=== PATIENT | female | born 1970 | race Caucasian/White ===

== ENCOUNTER 2020-03-28 02:40 | Emergency (ER) | payer OTHER ==
[~2020-03-28] VITALS: Ht 165.1 cm; Wt 67.3 kg
[2020-03-28 02:40] VITALS: BP 131/73
--- NOTE | 2020-03-28 03:05 | PHYS DOC ---
General Adult EDM: Chief Complaint: PAIN ON URINATION HPI: HPI: History obtained from patient. Patient is a 49-year-old female with history of UTI who presents with chief complaint of dysuria. She states 1 week ago her urine began smelling foul. States she has been trying [id number] Azo medication with minimal relief. She also has been drinking extra fluids and cranberry juice with minimal relief. She states that she thought her symptoms had improved however she woke up 30 minutes prior to arrival with significant dysuria. She also noted some blood on the tissue paper after wiping. Denies vaginal bleeding or discharge. Denies back pain. Denies history of kidney ston e. Notes this feels similar to previous urinary tract infections. States she has not had antibiotics in the past 6 months. Denies fevers or vomiting. States she has had some blood in her urine in the past with infection. Denies syncope. No other complaints. Review of Systems: Review of Systems: Constitutional: Denies fever or chills Eyes: Denies change in visual acuity HENT: Denies nasal congestion or sore throat Respiratory: Denies cough or shortness of breath Cardiovascular: Denies chest pain or edema GI: Denies abdominal pain, nausea, vomiting, bloody stools or diarrhea : Positive for dysuria Musculoskeletal: Denies back pain or joint pain Integument: Denies rash Neurologic: Denies headache, focal weakness or sensory changes Endocrine: Denies polyuria or polydipsia Lymphatic: Denies swollen glands Psychiatric: Denies depression or anxiety Physical Exam: PE: Constitutional: Well developed, well nourished, no acute distress, non-toxic appearance. [] HENT: Normocephalic, atraumatic, bilateral external ears normal, oropharynx moist, no oral exudates, nose normal. [] Eyes: PERRLA, EOMI, conjunctiva normal, no discharge. [] Neck: Normal range of motion, no tenderness, supple, no stridor. [] Cardiovascular:Heart rate regular rhythm, no murmur [] Lungs & Thorax: Bilateral breath sounds clear to auscultation [] Abdomen: Soft, nontender, nonacute abdomen. No involuntary guarding or rigidity noted. No acute peritonitis. Skin: Warm, dry, no erythema, no rash. [] Back: No tenderness, no CVA tenderness. [] Extremities: No tenderness, no cyanosis, no clubbing, ROM intact, no edema. [] Neurologic: Alert and oriented X 3, normal motor function, normal sensory func tion, no focal deficits noted. [] Psychologic: Affect normal, judgement normal, mood normal. [] Current Patient Data: Labs: Laboratory Tests Test 03/28/20 02:50 Urine Collection Type Unknown Urine Color Yellow Urine Clarity Hazy Urine pH 6.0 Urine Specific [place] 1.010 Urine Protein Neg Urine Glucose (UA) Neg mg/dL Urine Ketones (Stick) Neg mg/dL Urine Blood Large Urine Nitrite Neg Urine Bilirubin Neg Urine Urobilinogen Dipstick 0.2 mg/dL Urine Leukocyte Esterase Large Urine RBC 1-2 /HPF Urine WBC >40 /HPF Urine Squamous Epithelial Cells Few /LPF Urine Bacteria Few /HPF Vital Signs: Vital Signs Date Time Temp Pulse Resp B/P (MAP) Pulse Ox O2 Delivery O2 Flow Rate FiO2 03/28/20 02:40 98.6 76 16 131/73 (92) 100 Room Air EKG: EKG: [] Radiology/Procedures: Radiology/Procedures: [] Heart Score: Risk Factors: Risk Factors: DM, Current or recent (<one month) smoker, HTN, HLP, family history of CAD, obesity. Risk Scores: Score 0 - 3: 2.5% MACE over next 6 weeks - Discharge Home Score 4 - 6: 20.3% MACE over next 6 weeks - Admit for Clinical Observation Score 7 - 10: 72.7% MACE over next 6 weeks - Early Invasive Strategies Course & Med Decision Making: Course & Med Decision Making Pertinent Labs and Imaging studies reviewed. (See chart for details) [] Patient is a very pleasant 49-year-old female who presents with chief complaint of dysuria. Urinalysis does show findings concerning for infection. She was given a dose of Keflex. She will be discharged with a short course of Keflex. Overall low suspicion that the hematuria in the urinalysis reflects ki dney stone. She denies any flank pain does not appear uncomfortable. She will be given a 7-day course of Keflex. Return precautions discussed and understood. Cultures are pending. She was instructed to follow-up with her primary care physician in the next 2 to 3 days. Stable for discharge home. James Disclaimer: James Disclaimer: This electronic medical record was generated, in whole or in part, using a voice recognition dictation system. Departure Departure: Impression: Primary Impression: UTI (urinary tract infection) Qualified Codes: N30.01 - Acute cystitis with hematuria Disposition: HOME SELF CARE/HOMELESS Condition: STABLE Referrals: ANGELA HURST (PCP) Patient Instructions: Urinary Tract Infection Scripts Cephalexin (KEFLEX) 500 Mg Capsule 500 MG PO BID for infection for 7 Days, #14 TAB Prov: CONNIE AN DO 03/28/20 CONNIE AN DO Mar 28, 2020 03:04
[2020-03-28 03:22] LABS: BACTERIA,URINE FEW /HPF (0-FEW); BILIRUBIN,URINE NEG (NEG); CLARITY,URINE HAZY; COLOR,URINE YELLOW; GLUCOSE,URINE NEG (NEG); NITRITE,URINE NEG (NEG); SQUAMOUS EPITHELIAL CELL,UR FEW /LPF; UROBILINOGEN,URINE 0.2 mg/dL (0.2 mg/dL); WBC,URINE >40 /HPF (0-4)
[2020-03-28] MEDS ORDERED: CEPH-264 PO (03:26)
[2020-03-28 03:40] LABS: U PREG PATIENT NEGATIVE (NEG)
[2020-03-28] MEDS ORDERED: CEPHALEXIN 250 MG CAPSULE PO ONE (03:45)
== END 2020-03-28 04:15 | disposition home or self-care (01) ==
LOC: ER 02:40
DX: N39.0 Urinary tract infection, site not specified (principal); Z87.440 Personal history of urinary (tract) infections
CPT/HCPCS: 81001; 81025; 87077; 87086; 87186; 99283

== ENCOUNTER → 2020-06-13 | Outpatient (CLI) | payer OTHER ==
[~2020-06-13] MED LIST: CEPH-264 PO; NITR100C PO; SPIR50TA4 PO
== END ==
LOC: LAB 07:00
PROVIDERS: ATTEND Nurse Anesthetist, Certified Registered
DX: Z01.812 Encounter for preprocedural laboratory examination (principal); Z20.828 Contact with and (suspected) exposure to other viral communicable diseases
CPT/HCPCS: U0003

== ENCOUNTER → 2020-06-17 | Day surgery (SDC) | payer OTHER ==
[~2020-06-17] MED LIST changes: +IPRATRPIUM/ALBUTEROL 0.5/2.5MG 3 ML NEBU. NEB PRN; +IV RINGERS SOLUTION,LACTATED 1,000 ML IV SCH; +LIDOCAINE 2% PF 5 ML VIAL. ONE; +MIDAZOLAM HCL PF 2 MG/2 ML VIAL. IV ONE; +ONDANSETRON PF 4 MG/2 ML VIAL. IV PRN; +PROPOFOL 10,000 MCG/ML (20ML) VIAL IV ONE
[2020-06-17 08:40] VITALS: BP 119/67
== END | disposition home or self-care (01) ==
LOC: SURG 06:33
PROVIDERS: ATTEND Emergency Medicine
DX: Z12.11 Encounter for screening for malignant neoplasm of colon (principal); Z91.013 Allergy to seafood; Z79.899 Other long term (current) drug therapy
CPT/HCPCS: 45378; J2001; J2704; J7120